=== PATIENT | male | born 1945 | race Caucasian/White ===

== ENCOUNTER 2021-10-31 12:54 | Inpatient (IN) ==
[2021-10-31 13:47] LABS: Basophils # 0.1 K/mcL (0.0-0.2); Basophils % 1.1 %; Eosinophils # 0.1 K/mcL (0.0-0.6); Eosinophils % 1.5 %; Hematocrit 42.6 % (37.5-50.1); Hemoglobin 13.5 g/dL (12.9-16.9); Immature Granulocytes % 0.2 % (0-4); Lymphocytes # 1.6 K/mcL (0.6-4.6); Lymphocytes % 29.9 %; Mean Corpuscular HGB Conc 31.7 g/dL (31.6-35.5); Mean Corpuscular Volume 94.7 fL (83.0-100.0); Mean Platelet Volume 9.6 fL (9.4-12.4); Monocytes # 0.7 K/mcL (0.0-1.3); Monocytes % 12.3 %; Neutrophils # 2.9 K/mcL (1.6-8.9); Platelet Count 179 K/mcL (140-400); White Blood Count 5.4 K/mcL (4.3-11.1)
[2021-10-31] MEDS ORDERED: Isovue-370 500 ML BOTTLE IVP ONE (13:55)
[2021-10-31 14:03] LABS: Prothrombin Time 11.6 Seconds (9.4-12.1)
[2021-10-31 14:04] LABS: BUN/Creatinine Ratio 13 (6-26); Blood Urea Nitrogen 14 mg/dL (8-23); Calcium 9.4 mg/dL (8.6-10.3); Carbon Dioxide 26 mEq/L (23-29); Chloride 105 mEq/L (98-107); Glucose 86 mg/dL (70-105); Osmolality,Calculated 288 (280-300); Potassium 4.1 mEq/L (3.5-5.1); Sodium 139 mEq/L (136-145); Troponin I < 0.03 ng/mL (< 0.04); eGFR For African Americans > 60 (> 60); eGFR For Non-African Americans > 60 (> 60)
[2021-10-31 15:12] LABS: Thyroid Stimulating Hormone 0.307 mcIU/mL (0.340-5.600)
[2021-10-31] MEDS ORDERED: Acetaminophen 325 MG TABLET PO PRN (19:48)
[2021-10-31] MEDS ORDERED: Melatonin 3 MG TABLET PO PRN (19:48)
[2021-10-31] MEDS ORDERED: Ondansetron ODT 4 MG TAB.RAPDIS SL PRN (19:48)
[2021-10-31] MEDS ORDERED: Naloxone 0.4 MG/ML INJ IVP PRN (19:48)
[2021-10-31] MEDS ORDERED: *HR* OxyCODONE Immed Rel 5 MG TABLET PO PRN (19:48)
[2021-10-31] MEDS ORDERED: Perflutren Lipid Microsphere 1.3 ML in 0.9 % Sodium Chloride 8.7 ML IVP PRN (19:51)
[2021-10-31] MEDS ORDERED: Nitroglycerin 0.4 MG TAB.SUBL SL PRN (19:53)
[2021-10-31] MEDS ORDERED: Ipratropium/Albuterol Neb 3 ML IH PRN (20:18)
[2021-10-31] MEDS: *HR* HYDROcodone/Acet 5/325 mg TABLET PO PRN (22:08)
[2021-11-01 02:09] LABS: Hematocrit 43.3 % (37.5-50.1); Hemoglobin 14.2 g/dL (12.9-16.9); Mean Corpuscular HGB Conc 32.8 g/dL (31.6-35.5); Mean Corpuscular Hemoglobin 30.2 pg (28.0-33.3); Mean Corpuscular Volume 92.1 fL (83.0-100.0); Mean Platelet Volume 10.2 fL (9.4-12.4); Platelet Count 169 K/mcL (140-400); White Blood Count 5.4 K/mcL (4.3-11.1)
[2021-11-01 02:41] LABS: BUN/Creatinine Ratio 15 (6-26); Blood Urea Nitrogen 14 mg/dL (8-23); Calcium 9.4 mg/dL (8.6-10.3); Carbon Dioxide 26 mEq/L (23-29); Chloride 105 mEq/L (98-107); Chol/HDL Ratio 2.9 (0-4.9); Cholesterol 144 mg/dL (< 200); Glucose 86 mg/dL (70-105); HDL Cholesterol 50 mg/dL (40-59); LDL Cholesterol,Calculated 76 mg/dL (< 100); Magnesium 2.1 mg/dL (1.6-2.6); Osmolality,Calculated 290 (280-300); Phosphorous 3.4 mg/dL (2.7-4.5); Potassium 4.1 mEq/L (3.5-5.1); Sodium 140 mEq/L (136-145); Triglycerides 92 mg/dL (< 150); eGFR For African Americans > 60 (> 60); eGFR For Non-African Americans > 60 (> 60)
[2021-11-01 02:49] LABS: Triiodothyronine (T3) Free 3.35 pg/mL (2.50-3.90)
[2021-11-01 03:44] LABS: Estimated Average Glucose 117 mg/dl; Hemoglobin A1C 5.7 %
[2021-11-01] MEDS ORDERED: Regadenoson 0.4 MG/5 ML SYRINGE IVP ONE (06:45)
[2021-11-01] MEDS: Aspirin 81 MG TAB.CHEW PO SCH (11:19)
[2021-11-01] MEDS: polyethylene glycoL 3350 17 GM POWD.PACK PO SCH (12:53)
[2021-11-01] MEDS ORDERED: Isovue-370 500 ML BOTTLE IVP ONE (13:52)
[2021-11-01] MEDS ORDERED: Metoprolol XL (24 HR) Succ 25 MG TAB.ER.24H PO SCH (14:00)
[2021-11-01] MEDS: Budesonide/Formoterol 160/4.5 1 PUFF INH IH SCH ×2 (14:56→20:58)
[2021-11-01] MEDS: Gabapentin 300 MG CAPSULE PO SCH ×2 (15:22→22:01)
[2021-11-02 03:05] LABS: Basophils # 0.1 K/mcL (0.0-0.2); Basophils % 0.9 %; Eosinophils # 0.2 K/mcL (0.0-0.6); Eosinophils % 3.1 %; Hematocrit 44.6 % (37.5-50.1); Hemoglobin 14.8 g/dL (12.9-16.9); Immature Granulocytes % 0.2 % (0-4); Lymphocytes # 1.6 K/mcL (0.6-4.6); Lymphocytes % 28.6 %; Mean Corpuscular HGB Conc 33.2 g/dL (31.6-35.5); Mean Corpuscular Hemoglobin 30.6 pg (28.0-33.3); Mean Corpuscular Volume 92.3 fL (83.0-100.0); Mean Platelet Volume 9.8 fL (9.4-12.4); Monocytes # 0.6 K/mcL (0.0-1.3); Monocytes % 11.5 %; Neutrophils # 3.1 K/mcL (1.6-8.9); Platelet Count 180 K/mcL (140-400); Red Blood Count 4.83 M/mcL (4.19-5.50); Red Cell Distribution Width 13.7 % (11.5-14.5); Segmented Neutrophils % 55.7 %; White Blood Count 5.6 K/mcL (4.3-11.1)
[2021-11-02 03:13] LABS: BUN/Creatinine Ratio 17 (6-26); Blood Urea Nitrogen 16 mg/dL (8-23); Calcium 9.4 mg/dL (8.6-10.3); Carbon Dioxide 27 mEq/L (23-29); Chloride 103 mEq/L (98-107); Glucose 119 mg/dL (70-105); Osmolality,Calculated 286 (280-300); Potassium 4.1 mEq/L (3.5-5.1); Sodium 137 mEq/L (136-145); eGFR For African Americans > 60 (> 60); eGFR For Non-African Americans > 60 (> 60)
[2021-11-02] MEDS: Budesonide/Formoterol 160/4.5 1 PUFF INH IH SCH ×2 (07:41→20:14)
[2021-11-02] MEDS: polyethylene glycoL 3350 17 GM POWD.PACK PO SCH (07:56)
[2021-11-02] MEDS: Aspirin 81 MG TAB.CHEW PO SCH (07:56)
[2021-11-02] MEDS: Gabapentin 300 MG CAPSULE PO SCH ×3 (07:56→20:07)
[2021-11-02] MEDS ORDERED: MOM Conc 10 ML UD.LIQ PO PRN (08:45)
[2021-11-02] MEDS ORDERED: 0.9 % Sodium Chloride 500 ML IVC ONE (10:58)
[2021-11-02] MEDS ORDERED: Lidocaine Viscous Oral Soln 15 ML SOLUTION MM PRN (10:58)
[2021-11-02] MEDS: *HR* Midazolam HCl 5 MG/5 ML VIAL IVP PRN ×2 (11:35→11:50)
[2021-11-02] MEDS: *HR* FentaNYL (PF) 100 MCG/2 ML VIAL IVP PRN ×2 (11:35→11:50)
[2021-11-03] MEDS: Budesonide/Formoterol 160/4.5 1 PUFF INH IH SCH ×2 (08:47→19:39)
[2021-11-03] MEDS: Gabapentin 300 MG CAPSULE PO SCH ×3 (09:27→19:56)
[2021-11-03] MEDS: polyethylene glycoL 3350 17 GM POWD.PACK PO SCH (09:27)
[2021-11-03] MEDS: Aspirin 81 MG TAB.CHEW PO SCH (09:27)
[2021-11-04] MEDS: Budesonide/Formoterol 160/4.5 1 PUFF INH IH SCH ×2 (08:13→19:43)
[2021-11-04] MEDS: Gabapentin 300 MG CAPSULE PO SCH ×3 (08:51→19:51)
[2021-11-04] MEDS: Aspirin 81 MG TAB.CHEW PO SCH (08:51)
[2021-11-04] MEDS: polyethylene glycoL 3350 17 GM POWD.PACK PO SCH (08:52)
[2021-11-04 09:09] LABS: BUN/Creatinine Ratio 16 (6-26); Blood Urea Nitrogen 16 mg/dL (8-23); Calcium 9.5 mg/dL (8.6-10.3); Carbon Dioxide 31 mEq/L (23-29); Chloride 101 mEq/L (98-107); Glucose 91 mg/dL (70-105); Osmolality,Calculated 285 (280-300); Potassium 4.6 mEq/L (3.5-5.1); Sodium 137 mEq/L (136-145); eGFR For African Americans > 60 (> 60); eGFR For Non-African Americans > 60 (> 60)
[2021-11-05] MEDS: polyethylene glycoL 3350 17 GM POWD.PACK PO SCH (07:25)
[2021-11-05] MEDS: Gabapentin 300 MG CAPSULE PO SCH ×3 (07:29→21:36)
[2021-11-05] MEDS: Aspirin 81 MG TAB.CHEW PO SCH (07:30)
[2021-11-05] MEDS: *HR* HYDROcodone/Acet 5/325 mg TABLET PO PRN (07:32)
[2021-11-05] MEDS: Budesonide/Formoterol 160/4.5 1 PUFF INH IH SCH ×2 (07:32→20:26)
[2021-11-05] MEDS ORDERED: *HR* FentaNYL (PF) 100 MCG/2 ML VIAL ONE (15:06)
[2021-11-05] MEDS ORDERED: *HR* Midazolam HCl 2 MG/2 ML VIAL ONE (15:06)
[2021-11-05] MEDS ORDERED: *HR* Heparin 10,000 UNIT/10 ML VIAL ONE (15:06)
[2021-11-05] MEDS ORDERED: ISOVUE-370 200 ML INFUS..BTL ONE (15:06)
[2021-11-05] MEDS ORDERED: 0.9 % Sodium Chloride 1,000 ML ONE ×2 (15:06→15:22)
[2021-11-05] MEDS ORDERED: Heparin 1,000 UNITS/500 mL 500 ML ONE (15:06)
[2021-11-05] MEDS ORDERED: Nitroglycerin 1,000 MCG/5 ML VIAL IV ONE (15:07)
[2021-11-06] MEDS ORDERED: Perflutren Lipid Microsphere 1.3 ML in 0.9 % Sodium Chloride 8.7 ML IVP PRN (05:59)
[2021-11-06] MEDS ORDERED: Ondansetron ODT 4 MG TAB.RAPDIS SL PRN (05:59)
[2021-11-06] MEDS ORDERED: *HR* OxyCODONE Immed Rel 5 MG TABLET PO PRN (05:59)
[2021-11-06] MEDS ORDERED: Naloxone 0.4 MG/ML INJ IVP PRN (05:59)
[2021-11-06] MEDS ORDERED: Nitroglycerin 0.4 MG TAB.SUBL SL PRN (05:59)
[2021-11-06] MEDS ORDERED: Ipratropium/Albuterol Neb 3 ML IH PRN (05:59)
[2021-11-06] MEDS ORDERED: MOM Conc 10 ML UD.LIQ PO PRN (05:59)
[2021-11-06] MEDS ORDERED: *HR* HYDROcodone/Acet 5/325 mg TABLET PO PRN (05:59)
[2021-11-06] MEDS ORDERED: Acetaminophen 325 MG TABLET PO PRN (05:59)
[2021-11-06] MEDS ORDERED: Aspirin 81 MG TAB.CHEW PO ONE (06:00)
[2021-11-06] MEDS ORDERED: DOBUTamine 1,000 MG/250 ML BAG ONE (06:17)
[2021-11-06 07:05] LABS: Basophils # 0.1 K/mcL (0.0-0.2); Eosinophils # 0.3 K/mcL (0.0-0.6); Eosinophils % 3.9 %; Hematocrit 45.4 % (37.5-50.1); Hemoglobin 14.7 g/dL (12.9-16.9); Immature Granulocytes % 0.3 % (0-4); Lymphocytes # 1.6 K/mcL (0.6-4.6); Lymphocytes % 22.9 %; Mean Corpuscular HGB Conc 32.4 g/dL (31.6-35.5); Mean Corpuscular Hemoglobin 29.7 pg (28.0-33.3); Mean Corpuscular Volume 91.7 fL (83.0-100.0); Mean Platelet Volume 9.7 fL (9.4-12.4); Monocytes # 0.8 K/mcL (0.0-1.3); Neutrophils # 4.3 K/mcL (1.6-8.9); Platelet Count 180 K/mcL (140-400); Red Blood Count 4.95 M/mcL (4.19-5.50); Red Cell Distribution Width 13.7 % (11.5-14.5); Segmented Neutrophils % 60.9 %; White Blood Count 7.1 K/mcL (4.3-11.1)
[2021-11-06] MEDS: Chlorhexidine Rinse 15 ML MOUTHWASH MM SCH ×2 (07:11→20:00)
[2021-11-06 07:15] LABS: BUN/Creatinine Ratio 20 (6-26); Blood Urea Nitrogen 22 mg/dL (8-23); Calcium 9.8 mg/dL (8.6-10.3); Carbon Dioxide 29 mEq/L (23-29); Chloride 100 mEq/L (98-107); Glucose 88 mg/dL (70-105); Osmolality,Calculated 283 (280-300); Potassium 4.2 mEq/L (3.5-5.1); Sodium 135 mEq/L (136-145); eGFR For African Americans > 60 (> 60); eGFR For Non-African Americans > 60 (> 60)
[2021-11-06 07:16] LABS: INR 1.1
[2021-11-06 07:26] LABS: Chol/HDL Ratio 2.2 (0-4.9)
[2021-11-06] MEDS: Gabapentin 300 MG CAPSULE PO SCH ×3 (07:37→20:00)
[2021-11-06] MEDS ORDERED: hydrOXYzine pamoate 25 MG CAPSULE PO SCH (09:00)
[2021-11-06] MEDS ORDERED: polyethylene glycoL 3350 17 GM POWD.PACK PO SCH (09:00)
[2021-11-06] MEDS ORDERED: Aspirin 81 MG TAB.CHEW PO SCH (09:00)
[2021-11-06 09:40] LABS: ABG Base Excess 2 mEq/L (-2 to 3); ABG HCO3 28 mEq/L (21-27); ABG Oxygen Saturation 93 % (95-98); ABG PCO2 45 mmHg (35-45); ABG PO2 69 mmHg (85-104); ABG TCO2 29 mEq/L (20-26)
[2021-11-06] MEDS: Budesonide/Formoterol 160/4.5 1 PUFF INH IH SCH ×2 (09:43→19:36)
[2021-11-06] MEDS ORDERED: CeFAZolin Syr 2,000MG/20 ML 2,000 MG/20 ML SYRINGE IVPB ONE (10:00)
[2021-11-06] MEDS ORDERED: NiCARdipine 2.5 MG/10 ML Syringe IVPB ONE (10:10)
[2021-11-06] MEDS ORDERED: *HR* Etomidate 20 MG/10 ML AMPUL IVP ONE (10:11)
[2021-11-06] MEDS ORDERED: *HR* FentaNYL (PF) 1,000 MCG/20 ML VIAL ONE (10:11)
[2021-11-06] MEDS ORDERED: *HR* Rocuronium Bromide 50 MG/5 ML VIAL ONE ×3 (10:11→15:47)
[2021-11-06] MEDS ORDERED: *HR* Midazolam HCl 5 MG/5 ML VIAL IVP ONE (10:11)
[2021-11-06] MEDS ORDERED: Tranexamic Acid 1,000 MG/10 ML VIAL ONE (10:14)
[2021-11-06] MEDS ORDERED: Lidocaine 2% Syringe 100 MG/5 ML ONE (10:17)
[2021-11-06] MEDS ORDERED: *HR* Magnesium Sulfate 1 GM/2 ML VIAL ONE (10:18)
[2021-11-06] MEDS ORDERED: Famotidine 20 MG/2 ML VIAL ONE (10:18)
[2021-11-06] MEDS ORDERED: Albumin Human 5% 75.0 GM/1,500 ML IV.SOLN ONE (10:48)
[2021-11-06] MEDS ORDERED: *HR* Phenylephrine 10 MG/ML VIAL IVC ONE (10:53)
[2021-11-06] MEDS ORDERED: D5% in Water 250 ML IV BAG IV ONE (10:53)
[2021-11-06] MEDS ORDERED: *HR* Heparin 10,000 UNIT/10 ML VIAL IR ONE (10:53)
[2021-11-06] MEDS ORDERED: Albumin Human 25% 25 GM/100 ML IV.SOLN IVPB ONE (10:53)
[2021-11-06] MEDS ORDERED: Tranexamic Acid 1,000 MG/10 ML VIAL IR ONE (10:53)
[2021-11-06] MEDS ORDERED: Lidocaine 2% Syringe 100 MG/5 ML IVP ONE (10:53)
[2021-11-06] MEDS ORDERED: *HR* Magnesium Sulfate 2 GM/50 ML PIGGYBACK IVPB ONE (10:53)
[2021-11-06] MEDS ORDERED: Mannitol 25% vial 12.5 GM/50 ML VIAL IVPB ONE (10:53)
[2021-11-06] MEDS ORDERED: Heparin 1,000 UNITS/500 mL 500 ML ONE (10:58)
[2021-11-06] MEDS ORDERED: Isovue-300 50ML VIAL ONE (10:58)
[2021-11-06] MEDS ORDERED: del Nido Cardioplegia Solution PF ONE (11:00)
[2021-11-06] MEDS ORDERED: Mannitol 25% vial 3.25 GM, Magnesium Sulfate 2 GM, Sodium Bicarbonate 13 MEQ, Potassium... PF ONE (11:00)
[2021-11-06] MEDS ORDERED: Buckersberg's Blood Cardioplegia PF ONE (11:00)
[2021-11-06] MEDS ORDERED: Norepinephrine 4 MG in 0.9 % Sodium Chloride 250 ML IVC PRN (11:00)
[2021-11-06] MEDS ORDERED: Sodium Bicarbonate 10 MEQ, Potassium Chloride 80 MEQ in CARDIOPLEGIC SOLUTION NO.1 1,00... PF ONE (11:00)
[2021-11-06] MEDS ORDERED: Heparin 15,000 UNIT in 0.9 % Sodium Chloride 500 ML IV ONE ×4 (11:00)
[2021-11-06 12:32] LABS: ABG Base Excess -2 mEq/L (-2 to 3); ABG Chloride 103 mEq/L (98-107); ABG Glucose 84 mg/dL (60-95); ABG HCO3 25 mEq/L (21-27); ABG Ionized Calcium 1.24 mmol/L (1.15-1.35); ABG Oxygen Saturation 100 % (95-98); ABG PCO2 48 mmHg (35-45); ABG PH 7.33 pH Units (7.32-7.45); ABG PO2 479 mmHg (85-104); ABG TCO2 26 mEq/L (20-26)
[2021-11-06 13:26] LABS: ABG Base Excess -2 mEq/L (-2 to 3); ABG Chloride 98 mEq/L (98-107); ABG Glucose 86 mg/dL (60-95); ABG HCO3 24 mEq/L (21-27); ABG Ionized Calcium 1.01 mmol/L (1.15-1.35); ABG Oxygen Saturation 100 % (95-98); ABG PCO2 45 mmHg (35-45); ABG PH 7.33 pH Units (7.32-7.45); ABG PO2 599 mmHg (85-104); ABG TCO2 25 mEq/L (20-26)
[2021-11-06] MEDS ORDERED: Protamine Sulfate 250 MG/25 ML VIAL IVP ONE (13:57)
[2021-11-06] MEDS ORDERED: Calcium Gluconate 1,000 MG/10 ML VIAL ONE (13:57)
[2021-11-06] MEDS ORDERED: Calcium Gluconate 1gm/50mL 1 GM/50 ML BAG IVPB PRN (14:01)
[2021-11-06] MEDS ORDERED: Insulin Regular, Human 100 UNIT/ML IV PRN (14:01)
[2021-11-06] MEDS ORDERED: Potassium Chloride 40 MEQ/200 ML BAG IVPB PRN (14:01)
[2021-11-06] MEDS ORDERED: Ondansetron 4 MG/2 ML VIAL IVP PRN (14:01)
[2021-11-06] MEDS ORDERED: *HR* Dextrose 50 % in Water (Syg) 50 ML SYRINGE IVP PRN (14:01)
[2021-11-06 14:12] LABS: ABG Base Excess -1 mEq/L (-2 to 3); ABG Chloride 100 mEq/L (98-107); ABG Glucose 86 mg/dL (60-95); ABG HCO3 25 mEq/L (21-27); ABG Ionized Calcium 0.98 mmol/L (1.15-1.35); ABG Oxygen Saturation 100 % (95-98); ABG PCO2 45 mmHg (35-45); ABG PH 7.36 pH Units (7.32-7.45); ABG PO2 598 mmHg (85-104); ABG TCO2 26 mEq/L (20-26)
[2021-11-06] MEDS ORDERED: DOBUTamine 1,000 MG/250 ML BAG IVC SCH (14:15)
[2021-11-06] MEDS ORDERED: Norepinephrine 4 MG/254 ML IV.SOLN IVC SCH (14:15)
[2021-11-06 14:31] LABS: ABG Base Excess 0 mEq/L (-2 to 3); ABG Chloride 102 mEq/L (98-107); ABG Glucose 95 mg/dL (60-95); ABG HCO3 29 mEq/L (21-27); ABG Oxygen Saturation 100 % (95-98); ABG PCO2 72 mmHg (35-45); ABG PH 7.22 pH Units (7.32-7.45); ABG PO2 451 mmHg (85-104); ABG TCO2 31 mEq/L (20-26)
[2021-11-06] MEDS ORDERED: *HR* Dextrose 50 % in Water (Syg) 50 ML SYRINGE ONE (14:57)
[2021-11-06 15:11] LABS: ABG Base Excess 0 mEq/L (-2 to 3); ABG Chloride 103 mEq/L (98-107); ABG Glucose 102 mg/dL (60-95); ABG HCO3 22 mEq/L (21-27); ABG Ionized Calcium 0.95 mmol/L (1.15-1.35); ABG Oxygen Saturation 100 % (95-98); ABG PCO2 27 mmHg (35-45); ABG PH 7.52 pH Units (7.32-7.45); ABG PO2 617 mmHg (85-104); ABG TCO2 23 mEq/L (20-26)
[2021-11-06] MEDS: Albumin Human 5% 12.5 GM/250 ML IV.SOLN IVPB PRN ×3 (16:18→17:03)
[2021-11-06 16:38] LABS: Basophils # 0.1 K/mcL (0.0-0.2); Basophils % 0.3 %; Eosinophils # 0.1 K/mcL (0.0-0.6); Eosinophils % 0.6 %; Immature Granulocytes % 1.6 % (0-4); Mean Corpuscular HGB Conc 32.8 g/dL (31.6-35.5); Mean Corpuscular Hemoglobin 30.7 pg (28.0-33.3); Mean Corpuscular Volume 93.5 fL (83.0-100.0); Mean Platelet Volume 9.7 fL (9.4-12.4); Monocytes # 1.2 K/mcL (0.0-1.3); Monocytes % 6.2 %; Neutrophils # 16.5 K/mcL (1.6-8.9); Platelet Count 110 K/mcL (140-400); Red Blood Count 4.17 M/mcL (4.19-5.50); Red Cell Distribution Width 13.6 % (11.5-14.5); Segmented Neutrophils % 86.3 %
[2021-11-06 16:39] LABS: Hemoglobin 12.8 g/dL (12.9-16.9); White Blood Count 19.1 K/mcL (4.3-11.1)
[2021-11-06] MEDS: niCARdipine 20 MG/200 ML MLS IVC SCH ×3 (16:41→17:41)
[2021-11-06 16:45] LABS: ABG Base Excess -2 mEq/L (-2 to 3); ABG HCO3 25 mEq/L (21-27); ABG Oxygen Saturation 100 % (95-98); ABG PCO2 47 mmHg (35-45); ABG PH 7.33 pH Units (7.32-7.45); ABG PO2 249 mmHg (85-104); ABG TCO2 26 mEq/L (20-26); Blood Gas Modality ASSIST CONTROL; Blood Gas VT 550 cc
[2021-11-06 16:52] LABS: BUN/Creatinine Ratio 20 (6-26); Blood Urea Nitrogen 19 mg/dL (8-23); Calcium 8.8 mg/dL (8.6-10.3); Carbon Dioxide 23 mEq/L (23-29); Chloride 107 mEq/L (98-107); Glucose 139 mg/dL (70-105); Magnesium 3.8 mg/dL (1.6-2.6); Osmolality,Calculated 289 (280-300); Potassium 4.4 mEq/L (3.5-5.1); Sodium 137 mEq/L (136-145); eGFR For African Americans > 60 (> 60); eGFR For Non-African Americans > 60 (> 60)
[2021-11-06] MEDS ORDERED: Pantoprazole 40 MG VIAL IVP SCH (17:00)
[2021-11-06] MEDS: *HR* FentaNYL (PF) 100 MCG/2 ML VIAL IVP PRN ×2 (17:47→21:40)
[2021-11-06] MEDS: *HR* OxyCODONE/APAP 5/325 TABLET PO PRN (17:47)
[2021-11-06 17:55] LABS: INR 1.2; Prothrombin Time 13.5 Seconds (9.4-12.1)
[2021-11-06 17:58] LABS: Activated Partial Thrombo Time 34.3 Seconds (26.0-36.0)
[2021-11-06 18:38] LABS: Bartonella Source SERUM
[2021-11-06 18:43] LABS: ABG Base Excess -3 mEq/L (-2 to 3); ABG HCO3 22 mEq/L (21-27); ABG Oxygen Saturation 93 % (95-98); ABG PCO2 41 mmHg (35-45); ABG PH 7.34 pH Units (7.32-7.45); ABG PO2 71 mmHg (85-104); ABG TCO2 24 mEq/L (20-26); Blood Gas Modality ASSIST CONTROL; Blood Gas VT 550 cc
[2021-11-06] MEDS: CeFAZolin 2 GM/120 ML BAG IVPB SCH (19:59)
[2021-11-06 20:50] LABS: ABG Base Excess -4 mEq/L (-2 to 3); ABG HCO3 23 mEq/L (21-27); ABG Oxygen Saturation 93 % (95-98); ABG PCO2 45 mmHg (35-45); ABG PH 7.31 pH Units (7.32-7.45); ABG PO2 73 mmHg (85-104); ABG TCO2 24 mEq/L (20-26); Blood Gas Modality ASSIST CONTROL; Blood Gas Pressure Support 8 cm H2O
[2021-11-06] MEDS ORDERED: Chlorhexidine Rinse 15 ML MOUTHWASH MM SCH (21:00)
[2021-11-06 23:35] LABS: ABG Base Excess -3 mEq/L (-2 to 3); ABG HCO3 22 mEq/L (21-27); ABG Oxygen Saturation 90 % (95-98); ABG PCO2 36 mmHg (35-45); ABG PH 7.39 pH Units (7.32-7.45); ABG PO2 59 mmHg (85-104); ABG TCO2 23 mEq/L (20-26)
[2021-11-07] MEDS: *HR* OxyCODONE/APAP 5/325 TABLET PO PRN ×4 (00:15→17:03)
[2021-11-07] MEDS: niCARdipine 20 MG/200 ML MLS IVC SCH ×6 (01:05→20:16)
[2021-11-07] MEDS: CeFAZolin 2 GM/120 ML BAG IVPB SCH ×3 (04:22→20:22)
[2021-11-07 04:59] LABS: Basophils % 0.2 %; Hematocrit 34.5 % (37.5-50.1); Immature Granulocytes % 0.7 % (0-4); Lymphocytes # 0.8 K/mcL (0.6-4.6); Lymphocytes % 7.2 %; Mean Corpuscular HGB Conc 31.6 g/dL (31.6-35.5); Mean Corpuscular Hemoglobin 29.8 pg (28.0-33.3); Mean Corpuscular Volume 94.3 fL (83.0-100.0); Mean Platelet Volume 10.6 fL (9.4-12.4); Monocytes # 1.2 K/mcL (0.0-1.3); Monocytes % 10.8 %; Neutrophils # 8.7 K/mcL (1.6-8.9); Platelet Count 121 K/mcL (140-400); Red Blood Count 3.66 M/mcL (4.19-5.50); Red Cell Distribution Width 13.8 % (11.5-14.5); Segmented Neutrophils % 81.1 %; White Blood Count 10.7 K/mcL (4.3-11.1)
[2021-11-07 05:01] LABS: Hemoglobin 10.9 g/dL (12.9-16.9)
[2021-11-07 05:02] LABS: INR 1.1; Prothrombin Time 11.9 Seconds (9.4-12.1)
[2021-11-07 05:05] LABS: Activated Partial Thrombo Time 30.9 Seconds (26.0-36.0)
[2021-11-07 05:21] LABS: BUN/Creatinine Ratio 23 (6-26); Blood Urea Nitrogen 20 mg/dL (8-23); Carbon Dioxide 23 mEq/L (23-29); Chloride 107 mEq/L (98-107); Glucose 111 mg/dL (70-105); Magnesium 2.5 mg/dL (1.6-2.6); Osmolality,Calculated 289 (280-300); Potassium 4.7 mEq/L (3.5-5.1); Sodium 138 mEq/L (136-145); eGFR For African Americans > 60 (> 60); eGFR For Non-African Americans > 60 (> 60)
[2021-11-07] MEDS: *HR* FentaNYL (PF) 100 MCG/2 ML VIAL IVP PRN (06:00)
[2021-11-07 07:10] LABS: ABG Base Excess -4 mEq/L (-2 to 3); ABG Chloride 106 mEq/L (98-107); ABG Glucose 178 mg/dL (60-95); ABG HCO3 23 mEq/L (21-27); ABG Ionized Calcium 1.37 mmol/L (1.15-1.35); ABG Oxygen Saturation 97 % (95-98); ABG PCO2 46 mmHg (35-45); ABG PH 7.31 pH Units (7.32-7.45); ABG PO2 99 mmHg (85-104); ABG TCO2 24 mEq/L (20-26)
[2021-11-07] MEDS: Budesonide/Formoterol 160/4.5 1 PUFF INH IH SCH ×3 (07:26→23:38)
[2021-11-07] MEDS ORDERED: Dextrose 4 GM Chewable Tablets PO PRN ×2 (07:52)
[2021-11-07] MEDS ORDERED: *HR* Dextrose 50 % in Water (Syg) 50 ML SYRINGE IVP PRN (07:52)
[2021-11-07] MEDS ORDERED: D5% in Water 1,000 ML IVC PRN (07:52)
[2021-11-07] MEDS ORDERED: Furosemide 40 MG/4 ML VIAL IVP SCH (08:00)
[2021-11-07] MEDS ORDERED: Mannitol 25% vial 3.25 GM, Magnesium Sulfate 2 GM, Sodium Bicarbonate 13 MEQ, Potassium... PF ONE (08:00)
[2021-11-07] MEDS ORDERED: del Nido Cardioplegia Solution PF ONE (08:00)
[2021-11-07] MEDS ORDERED: *HR* HYDROcodone/Acet 5/325 mg TABLET PO PRN (08:14)
[2021-11-07] MEDS ORDERED: Ipratropium/Albuterol Neb 3 ML IH PRN (08:14)
[2021-11-07] MEDS ORDERED: Nitroglycerin 0.4 MG TAB.SUBL SL PRN (08:14)
[2021-11-07] MEDS ORDERED: *HR* OxyCODONE Immed Rel 5 MG TABLET PO PRN (08:14)
[2021-11-07] MEDS ORDERED: Ondansetron 4 MG/2 ML VIAL IVP PRN (08:14)
[2021-11-07] MEDS ORDERED: Acetaminophen 325 MG TABLET PO PRN (08:14)
[2021-11-07] MEDS ORDERED: *HR* FentaNYL (PF) 100 MCG/2 ML VIAL IVP PRN (08:14)
[2021-11-07] MEDS ORDERED: Ondansetron ODT 4 MG TAB.RAPDIS SL PRN (08:14)
[2021-11-07] MEDS ORDERED: MOM Conc 10 ML UD.LIQ PO PRN (08:14)
[2021-11-07] MEDS ORDERED: Naloxone 0.4 MG/ML INJ IVP PRN (08:14)
[2021-11-07] MEDS ORDERED: *HR* Heparin 5,000 UNIT/ML VIAL SQ SCH (09:00)
[2021-11-07] MEDS ORDERED: Aspirin Enteric Coated 81 MG Tablet PO SCH (09:00)
[2021-11-07] MEDS: Insulin LISPRO 300 UNITS/3 ML VIAL SUBQ SCH ×4 (09:01→20:17)
[2021-11-07] MEDS: DOBUTamine 1,000 MG/250 ML BAG IVC SCH (09:03)
[2021-11-07] MEDS: Aspirin Enteric Coated 81 MG Tablet PO SCH (09:04)
[2021-11-07] MEDS: Chlorhexidine Rinse 15 ML MOUTHWASH MM SCH ×2 (09:05→20:06)
[2021-11-07] MEDS: Gabapentin 300 MG CAPSULE PO SCH ×3 (09:06→20:06)
[2021-11-07] MEDS: polyethylene glycoL 3350 17 GM POWD.PACK PO SCH (09:06)
[2021-11-07] MEDS: hydrOXYzine pamoate 25 MG CAPSULE PO SCH (09:07)
[2021-11-07] MEDS: Pantoprazole 40 MG VIAL IVP SCH (09:07)
[2021-11-07 10:23] LABS: Bartonella Species PCR NOT DETECTED
[2021-11-07 11:04] LABS: ABG Base Excess -2 mEq/L (-2 to 3); ABG Chloride 105 mEq/L (98-107); ABG Glucose 188 mg/dL (60-95); ABG HCO3 23 mEq/L (21-27); ABG Ionized Calcium 1.13 mmol/L (1.15-1.35); ABG PCO2 38 mmHg (35-45); ABG PH 7.38 pH Units (7.32-7.45); ABG PO2 > 630 mmHg (85-104); ABG TCO2 24 mEq/L (20-26)
[2021-11-07] MEDS: *HR* Heparin 5,000 UNIT/ML VIAL SQ SCH ×3 (11:20→20:06)
[2021-11-07] MEDS: Furosemide 40 MG/4 ML VIAL IVP SCH (16:47)
[2021-11-07] MEDS ORDERED: methylPREDNISolone 125 MG/2 ML VIAL IVP ONE (17:59)
[2021-11-08] MEDS: niCARdipine 20 MG/200 ML MLS IVC SCH ×6 (00:05→21:13)
[2021-11-08 04:43] LABS: Basophils % 0.1 %; Hemoglobin 10.6 g/dL (12.9-16.9); Immature Granulocytes % 0.2 % (0-4); Lymphocytes # 0.6 K/mcL (0.6-4.6); Lymphocytes % 4.9 %; Mean Corpuscular HGB Conc 32.1 g/dL (31.6-35.5); Mean Corpuscular Hemoglobin 30.2 pg (28.0-33.3); Mean Platelet Volume 10.8 fL (9.4-12.4); Monocytes % 7.8 %; Neutrophils # 10.6 K/mcL (1.6-8.9); Platelet Count 128 K/mcL (140-400); Red Blood Count 3.51 M/mcL (4.19-5.50); Red Cell Distribution Width 13.7 % (11.5-14.5); White Blood Count 12.2 K/mcL (4.3-11.1)
[2021-11-08] MEDS: CeFAZolin 2 GM/120 ML BAG IVPB SCH ×2 (04:49→14:40)
[2021-11-08 04:59] LABS: BUN/Creatinine Ratio 23 (6-26); Blood Urea Nitrogen 24 mg/dL (8-23); Calcium 9.4 mg/dL (8.6-10.3); Carbon Dioxide 30 mEq/L (23-29); Chloride 98 mEq/L (98-107); Glucose 131 mg/dL (70-105); Magnesium 2.1 mg/dL (1.6-2.6); Osmolality,Calculated 290 (280-300); Potassium 4.2 mEq/L (3.5-5.1); Sodium 137 mEq/L (136-145); eGFR For African Americans > 60 (> 60); eGFR For Non-African Americans > 60 (> 60)
[2021-11-08] MEDS: Insulin LISPRO 300 UNITS/3 ML VIAL SUBQ SCH ×4 (08:00→21:27)
[2021-11-08] MEDS: Pantoprazole 40 MG VIAL IVP SCH (08:01)
[2021-11-08] MEDS: *HR* Heparin 5,000 UNIT/ML VIAL SQ SCH ×3 (08:01→20:13)
[2021-11-08] MEDS: Furosemide 40 MG/4 ML VIAL IVP SCH ×2 (08:01→17:40)
[2021-11-08] MEDS: Chlorhexidine Rinse 15 ML MOUTHWASH MM SCH ×2 (08:02→20:14)
[2021-11-08] MEDS: Aspirin Enteric Coated 81 MG Tablet PO SCH (08:02)
[2021-11-08] MEDS: Gabapentin 300 MG CAPSULE PO SCH ×3 (08:03→20:13)
[2021-11-08] MEDS: hydrOXYzine pamoate 25 MG CAPSULE PO SCH (08:03)
[2021-11-08] MEDS: polyethylene glycoL 3350 17 GM POWD.PACK PO SCH (08:04)
[2021-11-08] MEDS: Budesonide/Formoterol 160/4.5 1 PUFF INH IH SCH ×2 (08:07→20:28)
[2021-11-08] MEDS: DOBUTamine 1,000 MG/250 ML BAG IVC SCH (09:26)
[2021-11-08] MEDS ORDERED: *HR* Amiodarone 200 MG TABLET PO SCH (09:45)
[2021-11-08] MEDS: *HR* OxyCODONE/APAP 5/325 TABLET PO PRN (11:47)
[2021-11-08] MEDS ORDERED: *HR* Metoprolol 5 MG/5 ML VIAL IVP PRN (19:00)
[2021-11-08] MEDS ORDERED: Amiodarone Premix 150 MG/100 ML BAG IVPB ONE (19:38)
[2021-11-08] MEDS ORDERED: Amiodarone Premix 360 MG/200 ML BAG IVC ONE (19:38)
[2021-11-09] MEDS: Amiodarone Premix 360 MG/200 ML BAG IVC SCH ×2 (01:45→13:21)
[2021-11-09] MEDS: niCARdipine 20 MG/200 ML MLS IVC SCH ×6 (02:28→21:15)
[2021-11-09 06:50] LABS: Basophils % 0.4 %; Eosinophils # 0.2 K/mcL (0.0-0.6); Eosinophils % 1.9 %; Hematocrit 31.6 % (37.5-50.1); Hemoglobin 10.3 g/dL (12.9-16.9); Immature Granulocytes % 0.6 % (0-4); Lymphocytes # 1.5 K/mcL (0.6-4.6); Lymphocytes % 13.9 %; Mean Corpuscular HGB Conc 32.6 g/dL (31.6-35.5); Mean Corpuscular Volume 92.1 fL (83.0-100.0); Mean Platelet Volume 10.9 fL (9.4-12.4); Monocytes # 1.1 K/mcL (0.0-1.3); Monocytes % 10.4 %; Neutrophils # 7.7 K/mcL (1.6-8.9); Platelet Count 151 K/mcL (140-400); Red Blood Count 3.43 M/mcL (4.19-5.50); Red Cell Distribution Width 13.8 % (11.5-14.5); Segmented Neutrophils % 72.8 %; White Blood Count 10.6 K/mcL (4.3-11.1)
[2021-11-09 07:19] LABS: BUN/Creatinine Ratio 33 (6-26); Blood Urea Nitrogen 35 mg/dL (8-23); Calcium 9.2 mg/dL (8.6-10.3); Carbon Dioxide 29 mEq/L (23-29); Chloride 98 mEq/L (98-107); Glucose 102 mg/dL (70-105); Magnesium 1.9 mg/dL (1.6-2.6); Osmolality,Calculated 290 (280-300); Potassium 3.8 mEq/L (3.5-5.1); Sodium 136 mEq/L (136-145); eGFR For African Americans > 60 (> 60); eGFR For Non-African Americans > 60 (> 60)
[2021-11-09] MEDS: Budesonide/Formoterol 160/4.5 1 PUFF INH IH SCH ×2 (07:56→19:57)
[2021-11-09] MEDS: Insulin LISPRO 300 UNITS/3 ML VIAL SUBQ SCH ×4 (08:01→21:15)
[2021-11-09] MEDS: Aspirin Enteric Coated 81 MG Tablet PO SCH (08:22)
[2021-11-09] MEDS: Chlorhexidine Rinse 15 ML MOUTHWASH MM SCH ×2 (08:23→21:15)
[2021-11-09] MEDS: hydrOXYzine pamoate 25 MG CAPSULE PO SCH (08:23)
[2021-11-09] MEDS: Pantoprazole 40 MG VIAL IVP SCH (08:23)
[2021-11-09] MEDS: Gabapentin 300 MG CAPSULE PO SCH ×3 (08:23→21:15)
[2021-11-09] MEDS: polyethylene glycoL 3350 17 GM POWD.PACK PO SCH (08:24)
[2021-11-09] MEDS: *HR* Heparin 5,000 UNIT/ML VIAL SQ SCH ×3 (08:24→21:14)
[2021-11-09] MEDS ORDERED: Ketorolac 30 MG/ML VIAL IVP ONE (09:00)
[2021-11-09] MEDS: Furosemide 40 MG/4 ML VIAL IVP SCH (09:00)
[2021-11-09] MEDS: DOBUTamine 1,000 MG/250 ML BAG IVC SCH ×2 (09:36→16:01)
[2021-11-09] MEDS: *HR* OxyCODONE/APAP 5/325 TABLET PO PRN (09:43)
[2021-11-09] MEDS: Albumin Human 5% 12.5 GM/250 ML IV.SOLN IVPB PRN ×3 (11:54→15:14)
[2021-11-09] MEDS ORDERED: Albumin Human 5% 12.5 GM/250 ML IV.SOLN IVPB ONE (13:51)
[2021-11-09] MEDS: 0.9 % Sodium Chloride 1,000 ML IVC SCH ×2 (14:43→21:16)
[2021-11-09] MEDS ORDERED: Perflutren Lipid Microsphere 1.3 ML in 0.9 % Sodium Chloride 8.7 ML IVP PRN (16:05)
[2021-11-09] MEDS: *HR* Amiodarone 200 MG TABLET PO SCH (21:14)
[2021-11-10] MEDS: niCARdipine 20 MG/200 ML MLS IVC SCH ×2 (03:44→05:20)
[2021-11-10 06:15] LABS: Basophils % 0.4 %; Eosinophils # 0.4 K/mcL (0.0-0.6); Eosinophils % 4.8 %; Hematocrit 25.5 % (37.5-50.1); Immature Granulocytes % 0.5 % (0-4); Lymphocytes # 1.2 K/mcL (0.6-4.6); Lymphocytes % 14.4 %; Mean Corpuscular HGB Conc 32.5 g/dL (31.6-35.5); Mean Corpuscular Hemoglobin 30.1 pg (28.0-33.3); Mean Corpuscular Volume 92.4 fL (83.0-100.0); Mean Platelet Volume 10.7 fL (9.4-12.4); Monocytes # 0.9 K/mcL (0.0-1.3); Monocytes % 10.9 %; Neutrophils # 5.9 K/mcL (1.6-8.9); Platelet Count 183 K/mcL (140-400); Red Blood Count 2.76 M/mcL (4.19-5.50); Red Cell Distribution Width 14.1 % (11.5-14.5); White Blood Count 8.5 K/mcL (4.3-11.1)
[2021-11-10 06:16] LABS: Hemoglobin 8.3 g/dL (12.9-16.9)
[2021-11-10 06:35] LABS: BUN/Creatinine Ratio 30 (6-26); Blood Urea Nitrogen 26 mg/dL (8-23); Calcium 8.7 mg/dL (8.6-10.3); Carbon Dioxide 29 mEq/L (23-29); Chloride 103 mEq/L (98-107); Glucose 92 mg/dL (70-105); Osmolality,Calculated 288 (280-300); Potassium 4.1 mEq/L (3.5-5.1); Sodium 137 mEq/L (136-145); eGFR For African Americans > 60 (> 60); eGFR For Non-African Americans > 60 (> 60)
[2021-11-10] MEDS: Budesonide/Formoterol 160/4.5 1 PUFF INH IH SCH ×2 (07:44→20:04)
[2021-11-10] MEDS: Insulin LISPRO 300 UNITS/3 ML VIAL SUBQ SCH ×3 (08:01→17:51)
[2021-11-10] MEDS: 0.9 % Sodium Chloride 1,000 ML IVC SCH (08:17)
[2021-11-10] MEDS: Aspirin Enteric Coated 81 MG Tablet PO SCH (08:17)
[2021-11-10] MEDS: *HR* Amiodarone 200 MG TABLET PO SCH ×2 (08:17→19:46)
[2021-11-10] MEDS: polyethylene glycoL 3350 17 GM POWD.PACK PO SCH (08:17)
[2021-11-10] MEDS: Gabapentin 300 MG CAPSULE PO SCH ×3 (08:18→19:47)
[2021-11-10] MEDS: hydrOXYzine pamoate 25 MG CAPSULE PO SCH (08:18)
[2021-11-10] MEDS: *HR* Heparin 5,000 UNIT/ML VIAL SQ SCH ×3 (08:18→19:47)
[2021-11-10] MEDS: Chlorhexidine Rinse 15 ML MOUTHWASH MM SCH ×3 (08:19→19:51)
[2021-11-10] MEDS: Pantoprazole 40 MG VIAL IVP SCH (08:19)
[2021-11-10 14:13] LABS: Hematocrit 25.4 % (37.5-50.1); Hemoglobin 8.1 g/dL (12.9-16.9); Mean Corpuscular HGB Conc 31.9 g/dL (31.6-35.5); Mean Corpuscular Hemoglobin 29.9 pg (28.0-33.3); Mean Corpuscular Volume 93.7 fL (83.0-100.0); Mean Platelet Volume 10.2 fL (9.4-12.4); Platelet Count 194 K/mcL (140-400); Red Blood Count 2.71 M/mcL (4.19-5.50); White Blood Count 8.1 K/mcL (4.3-11.1)
[2021-11-10] MEDS ORDERED: 0.9 % Sodium Chloride 500 ML IVC ONE (15:04)
[2021-11-10] MEDS ORDERED: 0.9 % Sodium Chloride 1,000 ML IVC ONE (15:14)
[2021-11-10 17:21] LABS: Bilirubin,Urine Negative (Negative); Blood,Urine Negative (Negative); Clarity,Urine Clear (Clear); Color,Urine Light-Yellow (Yellow); Glucose,Urine (UA) Normal (Normal); Ketones,Urine Negative (Negative); Leukocyte Esterase,Urine Negative (Negative); Nitrite,Urine Negative (Negative); Protein,Urine Trace mg/dL (Neg-Trace); Specific Gravity,Urine 1.024 (1.010-1.025)
[2021-11-10] MEDS: DOBUTamine 1,000 MG/250 ML BAG IVC SCH (18:22)
[2021-11-10] MEDS: *HR* OxyCODONE/APAP 5/325 TABLET PO PRN (19:29)
[2021-11-11] MEDS: Insulin LISPRO 300 UNITS/3 ML VIAL SUBQ SCH ×5 (00:29→21:37)
[2021-11-11] MEDS: *HR* OxyCODONE/APAP 5/325 TABLET PO PRN (00:38)
[2021-11-11 01:22] LABS: Basophils % 0.4 %; Eosinophils # 0.5 K/mcL (0.0-0.6); Eosinophils % 5.6 %; Hematocrit 26.7 % (37.5-50.1); Hemoglobin 8.4 g/dL (12.9-16.9); Immature Granulocytes % 0.7 % (0-4); Lymphocytes # 1.7 K/mcL (0.6-4.6); Lymphocytes % 20.7 %; Mean Corpuscular HGB Conc 31.5 g/dL (31.6-35.5); Mean Corpuscular Hemoglobin 29.7 pg (28.0-33.3); Mean Corpuscular Volume 94.3 fL (83.0-100.0); Monocytes # 0.9 K/mcL (0.0-1.3); Neutrophils # 5.2 K/mcL (1.6-8.9); Platelet Count 234 K/mcL (140-400); Red Blood Count 2.83 M/mcL (4.19-5.50); Segmented Neutrophils % 61.6 %; White Blood Count 8.4 K/mcL (4.3-11.1)
[2021-11-11 01:40] LABS: BUN/Creatinine Ratio 22 (6-26); Blood Urea Nitrogen 19 mg/dL (8-23); Carbon Dioxide 27 mEq/L (23-29); Chloride 104 mEq/L (98-107); Glucose 96 mg/dL (70-105); Magnesium 1.8 mg/dL (1.6-2.6); Osmolality,Calculated 288 (280-300); Potassium 4.3 mEq/L (3.5-5.1); Sodium 138 mEq/L (136-145); eGFR For African Americans > 60 (> 60); eGFR For Non-African Americans > 60 (> 60)
[2021-11-11] MEDS: DOBUTamine 1,000 MG/250 ML BAG IVC SCH (02:34)
[2021-11-11] MEDS: Budesonide/Formoterol 160/4.5 1 PUFF INH IH SCH ×2 (07:18→19:40)
[2021-11-11] MEDS ORDERED: 0.9 % Sodium Chloride 500 ML IVC ONE (07:28)
[2021-11-11] MEDS: *HR* Heparin 5,000 UNIT/ML VIAL SQ SCH ×3 (08:35→21:29)
[2021-11-11] MEDS: Gabapentin 300 MG CAPSULE PO SCH ×3 (08:36→21:37)
[2021-11-11] MEDS: polyethylene glycoL 3350 17 GM POWD.PACK PO SCH (08:36)
[2021-11-11] MEDS: hydrOXYzine pamoate 25 MG CAPSULE PO SCH (08:36)
[2021-11-11] MEDS: *HR* Amiodarone 200 MG TABLET PO SCH ×4 (08:36→21:37)
[2021-11-11] MEDS: Aspirin Enteric Coated 81 MG Tablet PO SCH (08:36)
[2021-11-11] MEDS: Pantoprazole 40 MG VIAL IVP SCH (08:37)
[2021-11-11] MEDS: Chlorhexidine Rinse 15 ML MOUTHWASH MM SCH ×2 (08:38→21:36)
[2021-11-11] MEDS ORDERED: DOBUTamine 1,000 MG/250 ML BAG IVC SCH (13:39)
[2021-11-11] MEDS ORDERED: 0.9 % Sodium Chloride 250 ML ONE ×2 (14:40→21:11)
[2021-11-12] MEDS: *HR* OxyCODONE/APAP 5/325 TABLET PO PRN ×2 (00:31→05:27)
[2021-11-12 06:29] LABS: Basophils # 0.1 K/mcL (0.0-0.2); Basophils % 0.6 %; Eosinophils # 0.4 K/mcL (0.0-0.6); Eosinophils % 5.5 %; Hematocrit 35.8 % (37.5-50.1); Immature Granulocytes % 1.4 % (0-4); Lymphocytes # 1.8 K/mcL (0.6-4.6); Lymphocytes % 23.1 %; Mean Corpuscular HGB Conc 32.7 g/dL (31.6-35.5); Mean Corpuscular Hemoglobin 29.5 pg (28.0-33.3); Mean Corpuscular Volume 90.4 fL (83.0-100.0); Mean Platelet Volume 9.7 fL (9.4-12.4); Monocytes # 1.1 K/mcL (0.0-1.3); Monocytes % 13.4 %; Neutrophils # 4.4 K/mcL (1.6-8.9); Platelet Count 291 K/mcL (140-400); Red Blood Count 3.96 M/mcL (4.19-5.50); White Blood Count 7.9 K/mcL (4.3-11.1)
[2021-11-12 06:50] LABS: Hemoglobin 11.7 g/dL (12.9-16.9)
[2021-11-12 07:09] LABS: Albumin 3.6 g/dL (3.5-5.7); Albumin/Globulin Ratio 1.5 (1.1-2.2); BUN/Creatinine Ratio 21 (6-26); Blood Urea Nitrogen 16 mg/dL (8-23); Calcium 9.4 mg/dL (8.6-10.3); Carbon Dioxide 26 mEq/L (23-29); Chloride 102 mEq/L (98-107); Globulin 2.4 g/dL (2.4-3.5); Glucose 91 mg/dL (70-105); Osmolality,Calculated 283 (280-300); Potassium 4.3 mEq/L (3.5-5.1); Sodium 136 mEq/L (136-145); eGFR For African Americans > 60 (> 60); eGFR For Non-African Americans > 60 (> 60)
[2021-11-12] MEDS: Budesonide/Formoterol 160/4.5 1 PUFF INH IH SCH (07:31)
[2021-11-12] MEDS: Insulin LISPRO 300 UNITS/3 ML VIAL SUBQ SCH ×2 (08:28→11:54)
[2021-11-12] MEDS: hydrOXYzine pamoate 25 MG CAPSULE PO SCH (08:29)
[2021-11-12] MEDS: Gabapentin 300 MG CAPSULE PO SCH (08:29)
[2021-11-12] MEDS: *HR* Amiodarone 200 MG TABLET PO SCH (08:29)
[2021-11-12] MEDS: Aspirin Enteric Coated 81 MG Tablet PO SCH (08:29)
[2021-11-12] MEDS: polyethylene glycoL 3350 17 GM POWD.PACK PO SCH (08:31)
[2021-11-12] MEDS: Chlorhexidine Rinse 15 ML MOUTHWASH MM SCH (08:31)
[2021-11-12] MEDS: Pantoprazole 40 MG VIAL IVP SCH (08:31)
[2021-11-12] MEDS: *HR* Heparin 5,000 UNIT/ML VIAL SQ SCH (08:31)
[2021-11-12 11:15] VITALS: BP 109/65; PULSE 76; TEMP 97.7; O2SAT 97
[2021-11-13] MEDS ORDERED: *HR* Amiodarone 200 MG TABLET PO SCH (08:00)
== END 2021-11-12 16:46 | disposition home health service (06) | DRG 216 ==
LOC: 3BNU 12:54 → EMEROOARM 12:54 → SUATTDRO 19:31 → 3BNU 20:19 → SUATTDRO 11-02 15:50 → ICNU 11-05 22:41 → 2NNU 11-09 09:25
PROVIDERS: ADMIT Family Medicine; ATTEND Family Medicine

== ENCOUNTER 2021-11-23 13:23 | Inpatient (IN) ==
[2021-11-23] MEDS ORDERED: Ondansetron 4 MG/2 ML VIAL IVP PRN (19:34)
[2021-11-23] MEDS ORDERED: Acetaminophen 325 MG TABLET PO PRN (19:34)
[2021-11-23] MEDS ORDERED: Naloxone 0.4 MG/ML INJ IVP PRN (19:34)
[2021-11-23] MEDS ORDERED: *HR* Heparin 5,000 UNIT/ML VIAL IVP PRN ×2 (20:27)
[2021-11-23 22:02] LABS: Bilirubin,Urine Negative (Negative); Blood,Urine Negative (Negative); Clarity,Urine Clear (Clear); Color,Urine Colorless (Yellow); Glucose,Urine (UA) Normal (Normal); Ketones,Urine Negative (Negative); Leukocyte Esterase,Urine Negative (Negative); Nitrite,Urine Negative (Negative); PH,Urine 7.5 pH Units (5.0-8.0); Protein,Urine Negative (Neg-Trace); Specific Gravity,Urine 1.015 (1.010-1.025); Urobilinogen,Urine Normal (Normal)
[2021-11-23] MEDS: Heparin 25,000UNIT/250ML 1/2NS 25,000 UNIT/250 ML IV.SOLN IVC SCH (22:11)
[2021-11-23] MEDS: Piperacillin/Tazobactam 3.375 GM in 0.9 % Sodium Chloride Mini Bag 100 ML IVPB SCH (22:11)
[2021-11-23] MEDS ORDERED: Perflutren Lipid Microsphere 1.3 ML in 0.9 % Sodium Chloride 8.7 ML IVP PRN (22:19)
[2021-11-23] MEDS ORDERED: Ipratropium/Albuterol Neb 3 ML IH PRN (22:25)
[2021-11-23] MEDS ORDERED: *HR* Dextrose 50 % in Water (Syg) 50 ML SYRINGE IVP PRN (22:26)
[2021-11-23] MEDS ORDERED: *HR* HYDROcodone/Acet 5/325 mg TABLET PO PRN (22:27)
[2021-11-24 04:51] LABS: Basophils # 0.1 K/mcL (0.0-0.2); Basophils % 1.4 %; Eosinophils # 0.9 K/mcL (0.0-0.6); Eosinophils % 10.6 %; Hemoglobin 12.4 g/dL (12.9-16.9); Immature Granulocytes % 0.5 % (0-4); Lymphocytes # 1.3 K/mcL (0.6-4.6); Lymphocytes % 15.7 %; Mean Corpuscular HGB Conc 31.8 g/dL (31.6-35.5); Mean Corpuscular Volume 94.2 fL (83.0-100.0); Mean Platelet Volume 9.1 fL (9.4-12.4); Monocytes # 0.7 K/mcL (0.0-1.3); Monocytes % 9.2 %; Neutrophils # 5.1 K/mcL (1.6-8.9); Platelet Count 371 K/mcL (140-400); Red Blood Count 4.14 M/mcL (4.19-5.50); Segmented Neutrophils % 62.6 %; White Blood Count 8.1 K/mcL (4.3-11.1)
[2021-11-24 05:06] LABS: Albumin 3.5 g/dL (3.5-5.7); Albumin/Globulin Ratio 1.5 (1.1-2.2); Bilirubin,Direct 0.1 mg/dL (0.0-0.2); Bilirubin,Indirect 0.4 mg/dL (0.0-1.0); Bilirubin,Total 0.5 mg/dL (0.3-1.0); Globulin 2.3 g/dL (2.4-3.5); INR 1.1; Prothrombin Time 12.8 Seconds (9.4-12.1); Total Protein 5.8 g/dL (6.4-8.9)
[2021-11-24 05:08] LABS: BUN/Creatinine Ratio 11 (6-26); Blood Urea Nitrogen 11 mg/dL (8-23); Calcium 8.8 mg/dL (8.6-10.3); Carbon Dioxide 25 mEq/L (23-29); Chloride 103 mEq/L (98-107); Glucose 100 mg/dL (70-105); Magnesium 2.2 mg/dL (1.6-2.6); Osmolality,Calculated 281 (280-300); Phosphorous 3.6 mg/dL (2.7-4.5); Potassium 4.5 mEq/L (3.5-5.1); Sodium 136 mEq/L (136-145); eGFR For African Americans > 60 (> 60); eGFR For Non-African Americans > 60 (> 60)
[2021-11-24 05:21] LABS: Thyroid Stimulating Hormone 1.806 mcIU/mL (0.340-5.600)
[2021-11-24] MEDS: Piperacillin/Tazobactam 3.375 GM in 0.9 % Sodium Chloride Mini Bag 100 ML IVPB SCH ×3 (05:26→21:05)
[2021-11-24] MEDS ORDERED: Perflutren Lipid Microsphere 1.3 ML in 0.9 % Sodium Chloride 8.7 ML IVP PRN (07:46)
[2021-11-24] MEDS ORDERED: *HR* OxyCODONE/APAP 5/325 TABLET PO PRN (09:34)
[2021-11-24] MEDS: Aspirin Enteric Coated 81 MG Tablet PO SCH (09:37)
[2021-11-24] MEDS: Pantoprazole 40 MG VIAL IVP SCH (09:38)
[2021-11-24] MEDS: *HR* Amiodarone 200 MG TABLET PO SCH ×2 (09:38→21:03)
[2021-11-24] MEDS: Budesonide/Formoterol 160/4.5 1 PUFF INH IH SCH ×2 (11:52→20:09)
[2021-11-24] MEDS ORDERED: Ketorolac 30 MG/ML VIAL IVP ONE (12:58)
[2021-11-25 03:34] LABS: Basophils # 0.1 K/mcL (0.0-0.2); Basophils % 1.2 %; Eosinophils # 0.6 K/mcL (0.0-0.6); Eosinophils % 9.4 %; Hematocrit 37.3 % (37.5-50.1); Hemoglobin 12.2 g/dL (12.9-16.9); Immature Granulocytes % 0.1 % (0-4); Lymphocytes # 1.6 K/mcL (0.6-4.6); Mean Corpuscular HGB Conc 32.7 g/dL (31.6-35.5); Mean Corpuscular Hemoglobin 30.3 pg (28.0-33.3); Mean Corpuscular Volume 92.6 fL (83.0-100.0); Mean Platelet Volume 9.5 fL (9.4-12.4); Monocytes # 0.7 K/mcL (0.0-1.3); Monocytes % 10.9 %; Neutrophils # 3.7 K/mcL (1.6-8.9); Platelet Count 375 K/mcL (140-400); Red Blood Count 4.03 M/mcL (4.19-5.50); Red Cell Distribution Width 14.2 % (11.5-14.5); Segmented Neutrophils % 54.4 %; White Blood Count 6.8 K/mcL (4.3-11.1)
[2021-11-25 03:54] LABS: BUN/Creatinine Ratio 13 (6-26); Blood Urea Nitrogen 14 mg/dL (8-23); Carbon Dioxide 26 mEq/L (23-29); Chloride 102 mEq/L (98-107); Glucose 93 mg/dL (70-105); Magnesium 2.2 mg/dL (1.6-2.6); Osmolality,Calculated 282 (280-300); Potassium 4.2 mEq/L (3.5-5.1); Sodium 136 mEq/L (136-145); eGFR For African Americans > 60 (> 60); eGFR For Non-African Americans > 60 (> 60)
[2021-11-25] MEDS: Piperacillin/Tazobactam 3.375 GM in 0.9 % Sodium Chloride Mini Bag 100 ML IVPB SCH (05:19)
[2021-11-25] MEDS: Budesonide/Formoterol 160/4.5 1 PUFF INH IH SCH ×2 (07:45→20:15)
[2021-11-25] MEDS: Heparin 25,000UNIT/250ML 1/2NS 25,000 UNIT/250 ML IV.SOLN IVC SCH ×2 (07:54→14:52)
[2021-11-25] MEDS: Aspirin Enteric Coated 81 MG Tablet PO SCH (07:55)
[2021-11-25] MEDS ORDERED: Ipratropium/Albuterol Neb 3 ML IH SCH (08:00)
[2021-11-25] MEDS: *HR* Amiodarone 200 MG TABLET PO SCH ×2 (08:02→19:30)
[2021-11-25] MEDS: Pantoprazole 40 MG VIAL IVP SCH (08:02)
[2021-11-25] MEDS ORDERED: Benzonatate 100 MG CAPSULE PO PRN (09:07)
[2021-11-25] MEDS: Cefdinir 300 MG CAPSULE PO SCH ×2 (11:11→19:31)
[2021-11-25] MEDS: Levalbuterol Neb 0.63 MG/3 ML IH SCH ×3 (11:32→20:13)
[2021-11-26 02:51] LABS: Basophils # 0.1 K/mcL (0.0-0.2); Basophils % 1.1 %; Eosinophils # 0.5 K/mcL (0.0-0.6); Hematocrit 35.9 % (37.5-50.1); Hemoglobin 11.5 g/dL (12.9-16.9); Immature Granulocytes % 0.5 % (0-4); Lymphocytes # 1.8 K/mcL (0.6-4.6); Mean Corpuscular Hemoglobin 29.9 pg (28.0-33.3); Mean Corpuscular Volume 93.5 fL (83.0-100.0); Mean Platelet Volume 9.3 fL (9.4-12.4); Monocytes # 0.7 K/mcL (0.0-1.3); Monocytes % 10.1 %; Neutrophils # 3.5 K/mcL (1.6-8.9); Platelet Count 328 K/mcL (140-400); Red Blood Count 3.84 M/mcL (4.19-5.50); Red Cell Distribution Width 14.4 % (11.5-14.5); Segmented Neutrophils % 53.3 %; White Blood Count 6.5 K/mcL (4.3-11.1)
[2021-11-26 03:05] LABS: BUN/Creatinine Ratio 12 (6-26); Blood Urea Nitrogen 13 mg/dL (8-23); Calcium 9.2 mg/dL (8.6-10.3); Carbon Dioxide 26 mEq/L (23-29); Chloride 104 mEq/L (98-107); Glucose 99 mg/dL (70-105); Osmolality,Calculated 290 (280-300); Potassium 4.3 mEq/L (3.5-5.1); Sodium 140 mEq/L (136-145); eGFR For African Americans > 60 (> 60); eGFR For Non-African Americans > 60 (> 60)
[2021-11-26] MEDS: Levalbuterol Neb 0.63 MG/3 ML IH SCH ×3 (03:39→15:35)
[2021-11-26 03:45] VITALS: TEMP 97.6
[2021-11-26 07:18] VITALS: BP 128/84; PULSE 69; O2SAT 94
[2021-11-26] MEDS ORDERED: Apixaban 5 MG TABLET PO SCH (09:00)
[2021-11-26] MEDS: Pantoprazole 40 MG VIAL IVP SCH (09:27)
[2021-11-26] MEDS: *HR* Amiodarone 200 MG TABLET PO SCH (09:27)
[2021-11-26] MEDS: Cefdinir 300 MG CAPSULE PO SCH (09:27)
[2021-11-26] MEDS: Aspirin Enteric Coated 81 MG Tablet PO SCH (09:28)
[2021-11-26] MEDS: Budesonide/Formoterol 160/4.5 1 PUFF INH IH SCH (09:33)
[2021-11-26] MEDS ORDERED: Gabapentin 300 MG CAPSULE PO ONE (09:47)
== END 2021-11-26 18:20 | disposition home or self-care (01) | DRG 175 ==
LOC: 2NNU → 3NENU 11-25 16:58
PROVIDERS: ADMIT Internal Medicine; ATTEND Student in an Organized Health Care Education/Training Program